=== PATIENT | female | born 1965 | race Caucasian/White ===

== ENCOUNTER → 2020-08-07 | Outpatient (CLI) | payer OTHER ==
[~2020-08-07] MED LIST: CIPROFLOXACIN500 M1 PO; DEXEDRINE5 MG; FIORICET 50-321 EACH PO; K-DUR 20 MEQ T20 MEQ PO; NORCO 5-325 TA1 EACH PO
== END ==
LOC: BC 09:32
PROVIDERS: ATTEND Family Medicine
DX: Z12.31 Encounter for screening mammogram for malignant neoplasm of breast (principal)

== ENCOUNTER → 2020-08-12 | Outpatient (CLI) | payer OTHER | LOC: ULTRA 10:04 | PROVIDERS: ATTEND Family Medicine | DX: R92.8 Other abnormal and inconclusive findings on diagnostic imaging of breast (principal) ==

== ENCOUNTER → 2020-08-13 | Outpatient (CLI) | payer OTHER | LOC: RAD 13:53 | PROVIDERS: ATTEND Family Medicine | DX: R92.1 Mammographic calcification found on diagnostic imaging of breast (principal); R59.0 Localized enlarged lymph nodes ==

== ENCOUNTER → 2020-08-28 | Outpatient (CLI) | payer OTHER | LOC: MRI 08-20 11:04 | PROVIDERS: ATTEND Family Medicine | DX: R92.1 Mammographic calcification found on diagnostic imaging of breast (principal); N63.10 Unspecified lump in the right breast, unspecified quadrant; N63.20 Unspecified lump in the left breast, unspecified quadrant ==

== ENCOUNTER → 2020-09-02 | Outpatient (CLI) | payer OTHER ==
--- NOTE | 2020-09-04 16:06 | PATH ---
[facility] [place] [address] PATHOLOGY RPT PROCEDURE Name: HOMARMEHDIRENETTA LATHAM Room #: REG [facility]..#: [id number] Admission: 09/02/20 Date of : 65 Discharge: Report #: [id number] Path Case #: [id number] [facility] Accession Number: [id number] . 01 Material submitted: . PART A: breast - RIGHT BREAST- 6:30 5CM FN. Modifiers: right, Y, 5CM FROM NIPPLE PART B: lymph node - RIGHT AXILLARY LYMPH NODE. Modifiers: right, axillary tail . 01 Clinical history: . US/MAMMO BREAST BIOPSY/ LYMPH NODES RIGHT BREAST/ POST CHEST WALL MASS RIGHT AXILLARY LYMPH NODE . 02 Diagnosis: A. Breast, right breast 6:30 5 cm from nipple, needle core biopsy: - PREDOMINANTLY DUCTAL CARCINOMA IN SITU, SOLID TYPE AND HIGH NUCLEAR GRADE WITH SCATTERED RARE FOCI SUSPICIOUS FOR INVASION MEASURING APPROXIMATELY 1 MM, SEE COMMENT. . B. Lymph node, right axillary lymph node, needle core biopsy: - POSITIVE FOR MALIGNANCY; METASTATIC CARCINOMA PRESENT. - DEFINITE EXTRACAPSULAR EXTENSION NOT IDENTIFIED IN THE SECTIONS EXAMINED. - FOCAL LYMPH NODE TISSUE PRESENT TOWARDS THE PERIPHERY. (IUV/db; 09/04/2020) LBQ 09/04/2020 1523 Local . 02 Comment: Part A: Examination shows fibrotic breast parenchyma with rare ducts, few of which are replaced by ductal carcinoma in situ of high nuclear grade and solid type. Properly controlled p63 and smooth muscle myosin heavy chain are performed on block A2. P63 immunohistochemical stain shows complete loss of myoepithelial lining; however, the cell layer on myosin immunohistochemical stain is attenuated. Therefore, findings are suspicious for an invasive carcinoma. The focus measures 1 mm in greatest dimension in a single core in contiguous length. . Part B: Much of the lymph node sampled is replaced by metastatic carcinoma. Properly controlled AE1/AE3 immunohistochemical stain is performed on blocks B1 as well as B2, and shows strong membranous reactivity within the tumor consistent with the diagnosis of metastatic carcinoma. Breast markers ER, [place], Her-2/alissa as well as Ki-67 are ordered on block B1 (instead of the breast needle core biopsy, part A) due to lack of definitive invasive carcinoma in the breast biopsy tissue. . Dr. Renato Deng has seen dental detail representative slides of this case and concurs [address] [address] PATHOLOGY RPT PROCEDURE Name: MEHDI GRAF Room #: REG CLGiovanni Matos#: [id number] Admission: 09/02/20 Date of : 65 Discharge: Report #: [id number] Path Case #: [id number] with the diagnosis on 09/04/2020. . Findings of this case are discussed with Dr. Collins at 1:40 p.m. on 09/03/2020. (IUV/db; 09/04/2020) . 02 Electronically signed: . Marcy Rogers MD, Pathologist NPI- [id number] . 01 Gross description: . A. The specimen is received in formalin, labeled "Mehdi Graf, right breast 6:30 5 cm from nipple". Received are three needle cores of fibrofatty tissue measuring 0.8 x 0.6 x 0.2 cm in aggregate dimensions. The specimen is submitted entirely in cassettes A1 through A3. The cold ischemic time is less than 1 minute. The total formalin fixation time is 11 hours and 10 minutes. . B. The specimen is received in formalin, labeled "Mehdi Graf, right axillary lymph node". Received are two needle cores of pale hilario tissue measuring 1.8 x 0.4 x 0.2 cm in aggregate dimensions. The specimen is submitted entirely in cassettes B1 and B2. The cold ischemic time is less than 1 minute. The total formalin fixation time is 11 hours. . A portion of part B is received in RPMI solution and is held for possible flow cytometry studies. (CAA; 09/02/2020) . After initial microscopic examination, the specimen submitted in RPMI solution is filtered and submitted in cassette B3. (CAA; 09/03/2020) QA/QA 09/03/2020 1543 Local . 02 Pathologist provided ICD-10: D05.11, C77.3 . 02 CPT . 025086, 765788, N18592, B95178 Specimen Comment: A courtesy copy of this report has been sent to [phone], [phone] Specimen Comment: [phone] Specimen Comment: Report sent to / DR GALARZA Performed at: [address], [place], [place] [id number] MD Renato Deng MD Phone: [phone] Performed at: [facility] [address] [place] [address] PATHOLOGY RPT PROCEDURE Name: MEHDI GRAF Room #: REG JORDY Matos#: [id number] Admission: 09/02/20 Date of : 65 Discharge: Report #: [id number] Path Case #: [id number] [address], [place], [place] [id number] MD Marcy Rogers MD Phone: [phone]
== END | disposition home or self-care (01) ==
LOC: ULTRA 09:26 → BC 14:35
PROVIDERS: ATTEND Family Medicine
DX: D05.11 Intraductal carcinoma in situ of right breast (principal); C77.3 Secondary and unspecified malignant neoplasm of axilla and upper limb lymph nodes; R59.0 Localized enlarged lymph nodes; R92.1 Mammographic calcification found on diagnostic imaging of breast; Z98.890 Other specified postprocedural states; Z79.899 Other long term (current) drug therapy; Z88.0 Allergy status to penicillin